=== PATIENT | female | born 1955 | race Caucasian/White ===

== ENCOUNTER 2023-07-13 14:33 | Outpatient (CLI) | payer MEDICARE | END 2023-07-13 14:34 | disposition home or self-care (01) | LOC: CSHMRI 14:33 | PROVIDERS: ATTEND Family Medicine | DX: M47.22 Other spondylosis with radiculopathy, cervical region (principal); G95.9 Disease of spinal cord, unspecified; M25.48 Effusion, other site | CPT/HCPCS: 72141 ==